=== PATIENT | male | born 1940 | race Caucasian/White ===

== ENCOUNTER → 2016-10-26 | Outpatient (REF) | payer OTHER, MEDICARE ==
[2016-10-26 11:51] LABS: MEAN CORPUSCULAR HEMOGLOBIN 32.1 pg (27.0-33.0); MEAN CORPUSCULAR HGB CONC 35.4 g/dl (32.0-36.5); MEAN CORPUSCULAR VOLUME 90.7 fl (80.0-96.0); RED CELL DISTRIBUTION WIDTH 12.5 % (11.5-14.5); WHITE BLOOD COUNT 6.2 K/mm3 (4.0-10.0)
[2016-10-26 11:57] LABS: ALBUMIN 3.9 GM/DL (3.2-5.2); ALBUMIN/GLOBULIN RATIO 1.22 (1.00-1.93); ALKALINE PHOSPHATASE 60 U/L (45-117); ALT/SGPT 59 U/L (12-78); ANION GAP 8 MEQ/L (8-16); AST/SGOT 26 U/L (15-37); BILIRUBIN,TOTAL 0.9 MG/DL (0.2-1.0); BLOOD UREA NITROGEN 12 MG/DL (7-18); CALCIUM LEVEL 8.6 MG/DL (8.8-10.2); CARBON DIOXIDE LEVEL 32 MEQ/L (21-32); CHLORIDE LEVEL 102 MEQ/L (98-107); CHOLESTEROL LEVEL 123 MG/DL (<200); CREATININE FOR GFR 0.91 MG/DL (0.70-1.30); GLOMERULAR FILTRATION RATE > 60.0 (>42); GLUCOSE, FASTING 106 MG/DL (83-110); POTASSIUM SERUM 3.8 MEQ/L (3.5-5.1); SODIUM LEVEL 142 MEQ/L (136-145); TOTAL PROTEIN 7.1 GM/DL (6.4-8.2); TRIGLYCERIDES LEVEL 118 MG/DL (<150)
== END ==
LOC: M SFHCCLAY 08:45
PROVIDERS: ATTEND Family Medicine
DX: I25.810 Atherosclerosis of coronary artery bypass graft(s) without angina pectoris (principal); E11.9 Type 2 diabetes mellitus without complications

== ENCOUNTER → 2017-08-28 | Outpatient (REF) | payer OTHER, MEDICARE ==
[2017-08-28 11:22] LABS: HEMATOCRIT 42.7 % (42.0-52.0); HEMOGLOBIN 14.8 g/dl (14.0-18.0); MEAN CORPUSCULAR HEMOGLOBIN 30.6 pg (27.0-33.0); MEAN CORPUSCULAR HGB CONC 34.7 g/dl (32.0-36.5); MEAN CORPUSCULAR VOLUME 88.2 fl (80.0-96.0); PLATELET COUNT, AUTOMATED 200 10^3/uL (150-450); RED BLOOD COUNT 4.84 10^6/uL (4.30-6.10); RED CELL DISTRIBUTION WIDTH 12.3 % (11.5-14.5); WHITE BLOOD COUNT 7.8 10^3/uL (4.0-10.0)
[2017-08-28 12:05] LABS: ALBUMIN/GLOBULIN RATIO 1.14 (1.00-1.93); ALKALINE PHOSPHATASE 67 U/L (45-117); ALT/SGPT 41 U/L (12-78); ANION GAP 8 MEQ/L (8-16); AST/SGOT 21 U/L (7-37); BILIRUBIN,TOTAL 1.2 MG/DL (0.2-1.0); BLOOD UREA NITROGEN 14 MG/DL (7-18); CALCIUM LEVEL 8.7 MG/DL (8.8-10.2); CARBON DIOXIDE LEVEL 31 MEQ/L (21-32); CHLORIDE LEVEL 102 MEQ/L (98-107); CHOLESTEROL LEVEL 123 MG/DL (<200); CHOLESTEROL RISK RATIO 3.617 (<5); CREATININE FOR GFR 0.97 MG/DL (0.70-1.30); GLOMERULAR FILTRATION RATE > 60.0 (>42); GLUCOSE, FASTING 146 MG/DL (70-100); HDL CHOLESTEROL 34 MG/DL (>40); LDL CHOLESTEROL 53.2 MG/DL (<100); NON-HDL-C 89 MG/DL; POTASSIUM SERUM 3.6 MEQ/L (3.5-5.1); SODIUM LEVEL 141 MEQ/L (136-145); TOTAL PROTEIN 7.5 GM/DL (6.4-8.2); TRIGLYCERIDES LEVEL 179 MG/DL (<150)
[2017-08-28 12:12] LABS: MALB URINE SIEMENS 19.1 MG/L; MAU/CREAT RATIO 8.8 MCG/MG (0.0-30.0)
[2017-08-28 13:33] LABS: ESTIMATED AVERAGE GLUCOSE 137 MG/DL (60-110); HEMOGLOBIN A1c 6.4 %
== END ==
LOC: M SFHCCLAY 09:34
DX: E11.9 Type 2 diabetes mellitus without complications (principal); I25.810 Atherosclerosis of coronary artery bypass graft(s) without angina pectoris

== ENCOUNTER → 2018-02-19 | Outpatient (CLI) | payer OTHER, MEDICARE ==
[~2018-02-19] MED LIST: BUPIVACAINE HCL 0.5% 10 ML VIAL As Ordered; CONRAY-43 43% 50ML VIAL (Q9960) As Ordered; methylPREDNISolone SUSP 40 MG/ML (DEPO-medrol) VIAL (J1030) As Ordered
== END ==
LOC: M RADPRO 10:03
DX: M25.552 Pain in left hip (principal)
CPT/HCPCS: 20610

== ENCOUNTER 2018-08-20 05:48 | Day surgery (SDC) | payer OTHER, MEDICARE ==
[~2018-08-20] VITALS: Ht 188 cm; Wt 97.5 kg
[~2018-08-20 05:48] MED LIST changes: +ASPI1TAB PO; +ATOR1TAB19 PO; -BUPIVACAINE HCL 0.5% 10 ML VIAL As Ordered; -CONRAY-43 43% 50ML VIAL (Q9960) As Ordered; +ELIQ5TAB PO; +FISH7.5C PO; +FURO40TA2 PO; +GLIM1TAB PO; +KLOR10TA76 PO; +MECL1CHW2 PO; +METF10004 PO; +METF500T13 PO; +METO37.5 PO; +PACE200T PO; +PERC7.5T11 PO; +PRIL20TA2 PO; +SPIR-10 PO; +TRAM1CAP15 PO; +VITA100066 PO; -methylPREDNISolone SUSP 40 MG/ML (DEPO-medrol) VIAL (J1030) As Ordered
[2018-08-20] MEDS ORDERED: LR 1,000 ML IV ONE (07:00)
--- NOTE | 2018-08-20 07:38 | RO ---
DATE OF PROCEDURE: 08/20/2018 PREOPERATIVE DIAGNOSIS: Atrial fibrillation. POSTOPERATIVE DIAGNOSIS: Atrial fibrillation. PROCEDURE: Cardioversion. SURGEON: Dr. Lilian Chew HATCH BOSS: None ANESTHESIA: Matt Roy CRNA BRIEF HISTORY: Mr. Delong is a 78-year-old man who has established coronary artery disease with remote history of coronary artery bypass graft (CABG). He now has persistent atrial fibrillation for several months. He was quite symptomatic with shortness of breath and profound exertional intolerance. He initially was rate controlled, but did not see much improvement in his symptoms and eventually loaded with amiodarone. Because he still did not feel good we decided to pursue DC cardioversion in an attempt to improve quality of his life. He has been chronically anticoagulated with Eliquis. I discussed the nature of the procedure, its indications and potential outcomes, including inability to restore sinus rhythm and potential complications with the patient on an outpatient basis. He did sign appropriate consent. DESCRIPTION OF PROCEDURE: The procedure was performed in the recovery room. Matt Roy CRNA, provided anesthesia. A total of 90 mg of IV propofol were administered. Patient was cardioverted with defibrillator patches applied in anterior position with 200 joules of energy in synchronized mode. Single discharge led to recovery of sinus rhythm. There were no immediate complications. At the time of my dictation, a 12 lead ECG is pending. CONCLUSIONS: Successful cardioversion of atrial fibrillation. The patient will be discharged home on his chronic medications with the exception of reducing the dose of metoprolol to just 25 mg twice a day from his baseline 50 mg twice a day. Amiodarone and Eliquis will be continued. I will see him in followup in one week. FELICIA
[2018-08-20 08:35] VITALS: BP 113/62
--- NOTE | 2018-08-21 00:55 | ECGEPIP ---
Stationary ECG Study [facility] Test Date: 2018-08-20 Pat Name: ROMEL HAHN Department: Room: - Gender: M Student Advisor: EMILY : 1940 Requested By: Lilian Chew Order Number: [id number] Reading MD: Tod Adams Measurements Intervals [place] Rate: 61 P: [place]: 0 QRS: -50 QRSD: 122 T: 6 QT: 469 QTc: 474 Interpretive Statements ATRIAL FIBRILLATION WITH ABERRANT CONDUCTION OR VENTRICULAR PREMATURE COMPLEXES LEFT ANTERIOR FASCICULAR BLOCK PROLONGED QT INTERVAL NO PRIOR TRACING FOR COMPARISON Electronically Signed On 08-21-2018 0:55:00 EDT by Tod Adams
--- NOTE | 2018-08-21 00:59 | ECGEPIP ---
Stationary ECG Study [facility] Test Date: 2018-08-20 Pat Name: ROMEL HAHN Department: Room: - Gender: M Director Payment: EMILY : 1940 Requested By: Lilian Chew Order Number: [id number] Reading MD: Tod Adams Measurements Intervals [place] Rate: 60 P: 25 [place]: 222 QRS: -42 QRSD: 114 T: -9 QT: 470 QTc: 473 Interpretive Statements SINUS RHYTHM WITH FIRST DEGREE AV BLOCK MARKED LEFT AXIS DEVIATION/LEFT ANTERIOR HEMIBLOCK. POSSIBLE PRIOR INFERIOR WALL INFARCT MASKED BY LEFT ANTERIOR HEMIBLOCK PATTERN CONSISTENT WITH PULMONARY DISEASE MODERATE INTRAVENTRICULAR CONDUCTION DELAY/RIGHT BUNDLE-BRANCH BLOCK PATTERN PROLONGED QT INTERVAL PRIOR TRACING ON 08/20/2018 AT 6:39:57 A.M.. ATRIAL FIBRILLATION WAS NOTED Electronically Signed On 08-21-2018 0:59:17 EDT by Tod Adams
== END 2018-08-20 08:45 | disposition home or self-care (01) ==
LOC: M SDC 05:48
PROVIDERS: ATTEND Internal Medicine Cardiovascular Disease
DX: I48.91 Unspecified atrial fibrillation (principal); I25.10 Atherosclerotic heart disease of native coronary artery without angina pectoris; I10 Essential (primary) hypertension; E78.5 Hyperlipidemia, unspecified; E11.9 Type 2 diabetes mellitus without complications; K21.9 Gastro-esophageal reflux disease without esophagitis; Z95.1 Presence of aortocoronary bypass graft; Z79.82 Long term (current) use of aspirin; Z79.01 Long term (current) use of anticoagulants; Z79.84 Long term (current) use of oral hypoglycemic drugs; Z79.899 Other long term (current) drug therapy; Z88.8 Allergy status to other drugs, medicaments and biological substances

== ENCOUNTER → 2018-10-01 | Outpatient (CLI) | payer OTHER, MEDICARE ==
[~2018-10-01] MED LIST changes: -ASPI1TAB PO; +ASPI81TA26 PO; +BUPIVACAINE HCL 0.5% 10 ML VIAL As Ordered ONE; +CONRAY-43 43% 50ML VIAL (Q9960) As Ordered ONE; +MECL1CHW PO; -MECL1CHW2 PO; +methylPREDNISolone SUSP 40 MG/ML (DEPO-medrol) VIAL (J1030) As Ordered ONE
--- NOTE | 2018-10-01 16:38 | REP ---
RIGHT HIP INJECTION The procedure was performed under the direct supervision of Dr. Garibay. The benefits and risks including but not limited to pain infection bleeding and anaphylaxis were explained to the patient and informed consent was obtained. The right femoral neck was localized using fluoroscopic guidance. The skin was prepped and draped in a sterile fashion. 1% lidocaine was used as a local anesthetic. Using fluoroscopic guidance a 22-gauge spinal needle was inserted and advanced to the femoral neck. 0.5 ml of Conray 43 was injected to verify placement. 8 ml of a solution containing 6 ml of 0.5% Marcaine and 2 ml of Depo-Medrol 40 mg injected. The needle was then removed. The patient tolerated the procedure well and there were no immediate complications. Reviewed by NAS Negron 10/01/2018 04:16 P Electronically Signed by Awais Garibay MD 10/01/2018 04:29 P
== END ==
LOC: M RADPRO 09:59
PROVIDERS: ATTEND Orthopaedic Surgery
DX: M16.11 Unilateral primary osteoarthritis, right hip (principal)
CPT/HCPCS: 20610; 77002; J1030; Q9960

== ENCOUNTER → 2018-11-28 | Outpatient (REF) | payer OTHER, MEDICARE ==
[~2018-11-28] MED LIST changes: -BUPIVACAINE HCL 0.5% 10 ML VIAL As Ordered ONE; -CONRAY-43 43% 50ML VIAL (Q9960) As Ordered ONE; -methylPREDNISolone SUSP 40 MG/ML (DEPO-medrol) VIAL (J1030) As Ordered ONE
[2018-11-28 12:18] LABS: HEMOGLOBIN A1c 6.6 %
[2018-11-28 12:27] LABS: ALBUMIN 3.7 GM/DL (3.2-5.2); PERCENT SATURATION 33.6 % (19.7-50.0); THYROID STIMULATING HORMONE 5.79 uIU/ML (0.358-3.740)
== END ==
LOC: M LABDRAWC 11:28 → M LAB REF 11:28
PROVIDERS: ATTEND Family Medicine
DX: Z79.899 Other long term (current) drug therapy (principal)

== ENCOUNTER → 2019-03-02 | Outpatient (REF) | payer OTHER, MEDICARE ==
[~2019-03-02] MED LIST changes: -GLIM1TAB PO; +GLIM1TAB2 PO
== END ==
LOC: M LABDRAWC 16:11
PROVIDERS: ATTEND Internal Medicine Cardiovascular Disease
DX: E03.9 Hypothyroidism, unspecified (principal)

== ENCOUNTER → 2019-03-02 | Outpatient (REF) ==
[~2019-03-02] MED LIST changes: -GLIM1TAB2 PO; +GLIM1TAB4 PO
== END ==
LOC: M LAB LCGH 14:35
PROVIDERS: ATTEND Physician Assistant
DX: C44.42 Squamous cell carcinoma of skin of scalp and neck (principal)

== ENCOUNTER → 2019-05-15 | Outpatient (REF) | payer OTHER, MEDICARE ==
[~2019-05-15] MED LIST changes: +GLIM1TAB2 PO; -GLIM1TAB4 PO
== END ==
LOC: M LAB LCGH 15:24
PROVIDERS: ATTEND Surgery
DX: C44.42 Squamous cell carcinoma of skin of scalp and neck (principal)

== ENCOUNTER → 2019-06-02 | Outpatient (REF) | payer MEDICARE, OTHER ==
[~2019-06-02] MED LIST changes: -GLIM1TAB2 PO; +GLIM1TAB4 PO
[2019-06-02 17:17] LABS: THYROID STIMULATING HORMONE 11.1 uIU/ML (0.358-3.740)
[2019-06-02 17:18] LABS: FREE T4 0.91 NG/DL (0.76-1.46)
== END ==
LOC: M SFHCCLAY 10:39
PROVIDERS: ATTEND Family Medicine
DX: E03.2 Hypothyroidism due to medicaments and other exogenous substances (principal)

== ENCOUNTER → 2019-11-25 | Outpatient (REF) | payer OTHER, MEDICARE ==
[2019-11-26 11:50] LABS: FREE T4 1.27 NG/DL (0.76-1.46); THYROID STIMULATING HORMONE 4.06 uIU/ML (0.358-3.740)
== END ==
LOC: M SFHCCLAY 15:09
PROVIDERS: ATTEND Family Medicine
DX: E11.9 Type 2 diabetes mellitus without complications (principal)

== ENCOUNTER → 2020-03-16 | Outpatient (REF) | payer OTHER, MEDICARE | LOC: M SFHCPLAZ 16:51 | PROVIDERS: ATTEND Physician Assistant | DX: C44.41 Basal cell carcinoma of skin of scalp and neck (principal) ==

== ENCOUNTER → 2020-03-23 | Outpatient (REF) | payer OTHER, MEDICARE ==
[2020-03-24 12:36] LABS: CALCIUM LEVEL 9.6 MG/DL (8.8-10.2); CREATININE FOR GFR 1.36 MG/DL (0.70-1.30); FREE T4 1.29 NG/DL (0.76-1.46); POTASSIUM SERUM 5.1 MEQ/L (3.5-5.1); THYROID STIMULATING HORMONE 1.82 uIU/ML (0.358-3.740)
[2020-03-24 12:56] LABS: HEMOGLOBIN A1c 6.4 %
== END ==
LOC: M SFHCCLAY 15:43
PROVIDERS: ATTEND Family Medicine
DX: Z23 Encounter for immunization (principal); E11.9 Type 2 diabetes mellitus without complications; I25.810 Atherosclerosis of coronary artery bypass graft(s) without angina pectoris; E03.9 Hypothyroidism, unspecified

== ENCOUNTER → 2020-06-27 | Outpatient (REF) | payer OTHER, MEDICARE | LOC: M LAB REF 18:29 | PROVIDERS: ATTEND Dermatology | DX: L57.0 Actinic keratosis (principal) ==

== ENCOUNTER 2020-07-08 14:02 | Outpatient (CLI) | payer OTHER, MEDICARE ==
[~2020-07-08] VITALS: Ht 180.3 cm; Wt 95.2 kg
[~2020-07-08 14:02] MED LIST changes: +ALBUTEROL 90 MCG/ACT 8GM HFA INHALER INH PRN; +ALBUTEROL SULFATE 2.5 MG/0.5 ML INH NEB SOLN INH PRN; +EPINEPHrine INJ 1 MG/ML 1ML AMP IM PRN; +NS 1,000 ML IV SCH; +diphenhydrAMINE 50MG/ML VIAL (J1200) IV PRN; +methylPREDNISolone 125MG 2ML VIAL IV PRN
[2020-07-08] MEDS ORDERED: diphenhydrAMINE 50MG/ML VIAL (J1200) As Ordered ONE (14:07)
[2020-07-08 14:30] VITALS: BP 159/93
[2020-07-08] MEDS ORDERED: diphenhydrAMINE 50MG/ML VIAL (J1200) IV ONE (14:30)
[2020-07-08] MEDS ORDERED: BAMLANIVIMAB 700 MG in NS 250 ML IV ONE (15:00)
[2020-07-08 15:23] VITALS: BP 166/80
[2020-07-08 15:54] VITALS: BP 158/79
[2020-07-08 16:29] VITALS: BP 155/76
[2020-07-08 16:57] VITALS: BP 151/84
[2020-07-08 17:35] VITALS: BP 149/72
== END 2020-07-08 15:45 | disposition home or self-care (01) ==
LOC: M OPCLI4PR 14:02
PROVIDERS: ATTEND Family Medicine
DX: U07.1 COVID-19 (principal); Z88.8 Allergy status to other drugs, medicaments and biological substances
CPT/HCPCS: 96375; J1200; M0239

== ENCOUNTER → 2021-06-08 | Outpatient (REF) | payer OTHER, MEDICARE, BC ==
[~2021-06-08] MED LIST changes: -ALBUTEROL 90 MCG/ACT 8GM HFA INHALER INH PRN; -ALBUTEROL SULFATE 2.5 MG/0.5 ML INH NEB SOLN INH PRN; -EPINEPHrine INJ 1 MG/ML 1ML AMP IM PRN; -KLOR10TA76 PO; -NS 1,000 ML IV SCH; +POTA-136 PO; -diphenhydrAMINE 50MG/ML VIAL (J1200) IV PRN; -methylPREDNISolone 125MG 2ML VIAL IV PRN
== END ==
LOC: M LAB REF 09:12
PROVIDERS: ATTEND Nurse Practitioner Family
DX: C44.222 Squamous cell carcinoma of skin of right ear and external auricular canal (principal)

== ENCOUNTER → 2021-07-07 | Outpatient (REF) | payer MEDICARE, OTHER ==
[2021-07-07 15:51] LABS: HEMATOCRIT 44.6 % (42.0-52.0); MEAN CORPUSCULAR HEMOGLOBIN 30.7 pg (27.0-33.0); MEAN CORPUSCULAR HGB CONC 33.6 g/dl (32.0-36.5); MEAN CORPUSCULAR VOLUME 91.2 fl (80.0-96.0); PLATELET COUNT, AUTOMATED 163 10^3/uL (150-450); RED BLOOD COUNT 4.89 10^6/uL (4.30-6.10); WHITE BLOOD COUNT 6.6 10^3/uL (4.0-10.0)
[2021-07-07 16:26] LABS: ALBUMIN 3.9 GM/DL (3.2-5.2); ALT/SGPT 32 U/L (12-78); BILIRUBIN,TOTAL 0.9 MG/DL (0.2-1.0); BLOOD UREA NITROGEN 24 MG/DL (7-18); CARBON DIOXIDE LEVEL 31 MEQ/L (21-32); CHLORIDE LEVEL 103 MEQ/L (98-107); CHOLESTEROL LEVEL 147 MG/DL (<200); FREE T4 1.41 NG/DL (0.76-1.46); GLOMERULAR FILTRATION RATE > 60.0 (>35); GLUCOSE, FASTING 159 MG/DL (70-100); HDL CHOLESTEROL 35 MG/DL (>40); LDL CHOLESTEROL 87 MG/DL (<100); NON-HDL-C 112 MG/DL; POTASSIUM SERUM 4.7 MEQ/L (3.5-5.1); SODIUM LEVEL 138 MEQ/L (136-145); THYROID STIMULATING HORMONE 0.839 uIU/ML (0.358-3.740); TOTAL PROTEIN 7.4 GM/DL (6.4-8.2); TRIGLYCERIDES LEVEL 125 MG/DL (<150)
[2021-07-07 17:17] LABS: HEMOGLOBIN A1c 8.2 %
== END ==
LOC: M SFHCCLAY 10:43
PROVIDERS: ATTEND Family Medicine
DX: I25.810 Atherosclerosis of coronary artery bypass graft(s) without angina pectoris (principal); E11.9 Type 2 diabetes mellitus without complications; I48.0 Paroxysmal atrial fibrillation; E03.9 Hypothyroidism, unspecified

== ENCOUNTER → 2021-11-08 | Outpatient (REF) | payer OTHER, MEDICARE ==
[2021-11-08 16:38] LABS: HEMOGLOBIN A1c 8.3 %
== END ==
LOC: M SFHCCLAY 13:39
PROVIDERS: ATTEND Family Medicine
DX: E11.9 Type 2 diabetes mellitus without complications (principal)

== ENCOUNTER → 2021-12-12 | Outpatient (REF) | payer OTHER, MEDICARE ==
[2021-12-12 15:48] LABS: BASO # 0.1 10^3/uL (0.0-0.2); BASO % 0.8 % (0.0-1.0); EOS # 0.2 10^3/uL (0.0-0.5); EOS % 2.5 % (0.0-3.0); HEMATOCRIT 47.5 % (42.0-52.0); HEMOGLOBIN 15.6 g/dl (13.5-17.5); LYMPH # 1.9 10^3/uL (1.5-5.0); LYMPH % 25.5 % (24.0-44.0); MEAN CORPUSCULAR HEMOGLOBIN 30.6 pg (27.0-33.0); MEAN CORPUSCULAR HGB CONC 32.8 g/dl (32.0-36.5); MEAN CORPUSCULAR VOLUME 93.1 fl (80.0-96.0); MONO # 0.6 10^3/uL (0.0-0.8); NEUTROPHILS # 4.8 10^3/uL (1.5-8.5); NEUTROPHILS % 63.1 % (36.0-66.0); PLATELET COUNT, AUTOMATED 186 10^3/uL (150-450); WHITE BLOOD COUNT 7.5 10^3/uL (4.0-10.0)
[2021-12-12 18:39] LABS: CALCIUM LEVEL 9.1 MG/DL (8.8-10.2); CREATININE FOR GFR 1.81 MG/DL (0.70-1.30); GLOMERULAR FILTRATION RATE 38.6 (>35); POTASSIUM SERUM 4.3 MEQ/L (3.5-5.1); THYROID STIMULATING HORMONE 0.544 uIU/ML (0.358-3.740)
== END ==
LOC: M SFHCCLAY 11:19
PROVIDERS: ATTEND Family Medicine
DX: E11.9 Type 2 diabetes mellitus without complications (principal); M15.9 Polyosteoarthritis, unspecified; E03.9 Hypothyroidism, unspecified

== ENCOUNTER → 2022-01-03 | Outpatient (REF) | payer OTHER, MEDICARE ==
[~2022-01-03] MED LIST changes: +FISH10005 PO; -FISH7.5C PO
[2022-01-03 19:24] LABS: CALCIUM LEVEL 9.1 MG/DL (8.8-10.2); CREATININE FOR GFR 1.32 MG/DL (0.70-1.30); GLOMERULAR FILTRATION RATE 55.6 (>35); POTASSIUM SERUM 3.7 MEQ/L (3.5-5.1)
== END ==
LOC: M SFHCCLAY 10:06
PROVIDERS: ATTEND Family Medicine
DX: E11.9 Type 2 diabetes mellitus without complications (principal)

== ENCOUNTER → 2022-03-29 | Outpatient (REF) | payer BC, MEDICARE ==
[2022-03-29 13:11] LABS: CHOLESTEROL RISK RATIO 3.288 (<5)
== END ==
LOC: M LABDRAWC 11:19
PROVIDERS: ATTEND Physician Assistant
DX: E78.5 Hyperlipidemia, unspecified (principal)

== ENCOUNTER → 2022-04-13 | Outpatient (REF) | payer OTHER, MEDICARE ==
[2022-04-13 12:05] LABS: HEMATOCRIT 49.6 % (42.0-52.0); HEMOGLOBIN 15.9 g/dl (13.5-17.5); MEAN CORPUSCULAR HEMOGLOBIN 30.2 pg (27.0-33.0); MEAN CORPUSCULAR HGB CONC 32.1 g/dl (32.0-36.5); MEAN CORPUSCULAR VOLUME 94.1 fl (80.0-96.0); PLATELET COUNT, AUTOMATED 193 10^3/uL (150-450); RED BLOOD COUNT 5.27 10^6/uL (4.30-6.10); WHITE BLOOD COUNT 6.2 10^3/uL (4.0-10.0)
[2022-04-13 12:41] LABS: HEMOGLOBIN A1c 6.7 %
[2022-04-13 13:09] LABS: ALBUMIN 3.9 GM/DL (3.2-5.2); BILIRUBIN,TOTAL 0.6 MG/DL (0.2-1.0); CALCIUM LEVEL 9.2 MG/DL (8.8-10.2); CREATININE FOR GFR 1.35 MG/DL (0.70-1.30); FREE T4 1.11 NG/DL (0.76-1.46); GLOMERULAR FILTRATION RATE 54.1 (>35); POTASSIUM SERUM 4.2 MEQ/L (3.5-5.1); THYROID STIMULATING HORMONE 0.733 uIU/ML (0.358-3.740); TOTAL PROTEIN 7.5 GM/DL (6.4-8.2)
== END ==
LOC: M SFHCCLAY 09:04
PROVIDERS: ATTEND Family Medicine
DX: E11.9 Type 2 diabetes mellitus without complications (principal); I25.810 Atherosclerosis of coronary artery bypass graft(s) without angina pectoris; E03.9 Hypothyroidism, unspecified

== ENCOUNTER → 2022-07-18 | Outpatient (REF) | payer OTHER ==
[2022-07-18 11:52] LABS: HEMATOCRIT 47.6 % (42.0-52.0); HEMOGLOBIN 15.3 g/dl (13.5-17.5); MEAN CORPUSCULAR HEMOGLOBIN 29.9 pg (27.0-33.0); MEAN CORPUSCULAR HGB CONC 32.1 g/dl (32.0-36.5); MEAN CORPUSCULAR VOLUME 93.2 fl (80.0-96.0); PLATELET COUNT, AUTOMATED 170 10^3/uL (150-450); RED BLOOD COUNT 5.11 10^6/uL (4.30-6.10); WHITE BLOOD COUNT 6.6 10^3/uL (4.0-10.0)
[2022-07-18 12:13] LABS: MAU/CREAT RATIO 15.3 MCG/MG (0.0-30.0)
[2022-07-18 12:28] LABS: HEMOGLOBIN A1c 6.3 % (4.0-6.0)
[2022-07-18 14:30] LABS: ALBUMIN 3.8 G/DL (3.2-5.2); ALKALINE PHOSPHATASE 77 U/L (46-116); ALT/SGPT 17 U/L (7.0-40); AST/SGOT 18 U/L (<34); BILIRUBIN,TOTAL 0.6 MG/DL (0.3-1.2); BLOOD UREA NITROGEN 21 MG/DL (9-23); CALCIUM LEVEL 8.9 MG/DL (8.3-10.6); CARBON DIOXIDE LEVEL 30 MMOL/L (20-31); CHLORIDE LEVEL 105 MMOL/L (98-107); CHOLESTEROL LEVEL 142 MG/DL (<200); CHOLESTEROL RISK RATIO 3.55 (<5); CREATININE FOR GFR 1.17 MG/DL (0.70-1.30); GLOMERULAR FILTRATION RATE > 60.0 (>35); GLUCOSE, FASTING 117 MG/DL (74-106); NON-HDL-C 102 MG/DL; POTASSIUM SERUM 4.2 MMOL/L (3.5-5.1); SODIUM LEVEL 141 MMOL/L (136-145)
[2022-07-18 22:10] LABS: LDL CHOLESTEROL 84.6 MG/DL (<100); TOTAL PROTEIN 6.9 G/DL (5.7-8.2); TRIGLYCERIDES LEVEL 87 MG/DL (<150)
== END ==
LOC: M SFHCCLAY 07:58
PROVIDERS: ATTEND Family Medicine
DX: I25.810 Atherosclerosis of coronary artery bypass graft(s) without angina pectoris (principal); M15.9 Polyosteoarthritis, unspecified; E11.9 Type 2 diabetes mellitus without complications; I48.0 Paroxysmal atrial fibrillation; E03.9 Hypothyroidism, unspecified

== ENCOUNTER → 2023-01-31 | Outpatient (CLI) | payer OTHER | LOC: M CLY 08:16 | PROVIDERS: ATTEND Family Medicine | DX: I48.0 Paroxysmal atrial fibrillation (principal) ==

== ENCOUNTER → 2023-01-31 | Outpatient (REF) | payer OTHER ==
[2023-01-31 11:50] LABS: HEMATOCRIT 41.9 % (42.0-52.0); MEAN CORPUSCULAR HEMOGLOBIN 30.3 pg (27.0-33.0); MEAN CORPUSCULAR HGB CONC 33.4 g/dl (32.0-36.5); MEAN CORPUSCULAR VOLUME 90.7 fl (80.0-96.0); PLATELET COUNT, AUTOMATED 160 10^3/uL (150-450); RED BLOOD COUNT 4.62 10^6/uL (4.30-6.10); WHITE BLOOD COUNT 7.1 10^3/uL (4.0-10.0)
[2023-01-31 12:04] LABS: BLOOD UREA NITROGEN 23 MG/DL (9-23); CARBON DIOXIDE LEVEL 29 MMOL/L (20-31); CHLORIDE LEVEL 104 MMOL/L (98-107); CREATININE FOR GFR 1.09 MG/DL (0.70-1.30); GLOMERULAR FILTRATION RATE > 60.0 (>35); GLUCOSE, FASTING 119 MG/DL (74-106); POTASSIUM SERUM 4.1 MMOL/L (3.5-5.1); SODIUM LEVEL 141 MMOL/L (136-145)
[2023-01-31 13:13] LABS: HEMOGLOBIN A1c 6.6 % (4.0-6.0)
== END ==
LOC: M SFHCCLAY 07:33
PROVIDERS: ATTEND Family Medicine
DX: I25.810 Atherosclerosis of coronary artery bypass graft(s) without angina pectoris (principal); M15.9 Polyosteoarthritis, unspecified; E11.9 Type 2 diabetes mellitus without complications

== ENCOUNTER → 2023-04-30 | Outpatient (REF) | payer OTHER ==
[2023-04-30 12:31] LABS: ALBUMIN 4.1 G/DL (3.2-5.2); ALKALINE PHOSPHATASE 73 U/L (46-116); ALT/SGPT 42 U/L (7.0-40); AST/SGOT 28 U/L (<34); BLOOD UREA NITROGEN 23 MG/DL (9-23); CARBON DIOXIDE LEVEL 31 MMOL/L (20-31); CHLORIDE LEVEL 103 MMOL/L (98-107); CHOLESTEROL LEVEL 134 MG/DL (<200); CHOLESTEROL RISK RATIO 3.51 (<5); CREATININE FOR GFR 1.08 MG/DL (0.70-1.30); GLOMERULAR FILTRATION RATE > 60.0 (>35); GLUCOSE, FASTING 140 MG/DL (74-106); HDL CHOLESTEROL 38.1 MG/DL (>40); LDL CHOLESTEROL 65.1 MG/DL (<100); NON-HDL-C 95.9 MG/DL; POTASSIUM SERUM 4.2 MMOL/L (3.5-5.1); SODIUM LEVEL 143 MMOL/L (136-145); TOTAL PROTEIN 7.4 G/DL (5.7-8.2); TRIGLYCERIDES LEVEL 154 MG/DL (<150)
[2023-04-30 12:47] LABS: HEMOGLOBIN A1c 6.4 % (4.0-6.0)
== END ==
LOC: M SFHCCLAY 08:33
PROVIDERS: ATTEND Family Medicine
DX: I25.810 Atherosclerosis of coronary artery bypass graft(s) without angina pectoris (principal); G89.21 Chronic pain due to trauma; E11.9 Type 2 diabetes mellitus without complications

== ENCOUNTER → 2023-09-23 | Outpatient (CLI) | payer BC, OTHER ==
[~2023-09-23] MED LIST changes: -GLIM1TAB4 PO; +GLIM1TAB84 PO
[2023-09-23 16:08] LABS: HEMATOCRIT 45.9 % (42.0-52.0); HEMOGLOBIN 15.6 g/dl (13.5-17.5); MEAN CORPUSCULAR HEMOGLOBIN 31.8 pg (27.0-33.0); MEAN CORPUSCULAR VOLUME 93.7 fl (80.0-96.0); PLATELET COUNT, AUTOMATED 195 10^3/uL (150-450); WHITE BLOOD COUNT 9.8 10^3/uL (4.0-10.0)
[2023-09-23 16:41] LABS: ALBUMIN 4.3 G/DL (3.2-5.2); ALKALINE PHOSPHATASE 77 U/L (46-116); ALT/SGPT 38 U/L (7.0-40); AST/SGOT 37 U/L (<34); BILIRUBIN,TOTAL 0.9 MG/DL (0.3-1.2); BLOOD UREA NITROGEN 22 MG/DL (9-23); CALCIUM LEVEL 9.7 MG/DL (8.3-10.6); CARBON DIOXIDE LEVEL 30 MMOL/L (20-31); CHLORIDE LEVEL 101 MMOL/L (98-107); CREATININE FOR GFR 1.19 MG/DL (0.70-1.30); GLOMERULAR FILTRATION RATE > 60.0 (>35); GLUCOSE, FASTING 117 MG/DL (74-106); SODIUM LEVEL 139 MMOL/L (136-145); TOTAL PROTEIN 7.6 G/DL (5.7-8.2)
== END ==
LOC: M LAB 15:46
PROVIDERS: ATTEND Internal Medicine Cardiovascular Disease
DX: I50.22 Chronic systolic (congestive) heart failure (principal); Z95.5 Presence of coronary angioplasty implant and graft

== ENCOUNTER → 2023-11-14 | Outpatient (REF) | payer BC, OTHER | LOC: M LAB REF 15:57 | PROVIDERS: ATTEND Surgery | DX: D17.0 Benign lipomatous neoplasm of skin and subcutaneous tissue of head, face and neck (principal) ==

== ENCOUNTER → 2023-11-28 | Outpatient (REF) | payer BC, OTHER ==
[2023-11-28 12:34] LABS: HEMOGLOBIN A1c 6.8 % (4.0-6.0)
== END ==
LOC: M SFHCCLAY 08:32
PROVIDERS: ATTEND Family Medicine
DX: E11.9 Type 2 diabetes mellitus without complications (principal)

== ENCOUNTER → 2024-03-31 | Outpatient (REF) | payer BC, OTHER ==
[2024-04-01 12:36] LABS: RSV AMPLIFICATION NEGATIVE (NEGATIVE)
== END ==
LOC: M SFHCCLAY 11:34
PROVIDERS: ATTEND Family Medicine
DX: J06.9 Acute upper respiratory infection, unspecified (principal)

== ENCOUNTER → 2024-05-22 | Outpatient (REF) | payer BC, OTHER ==
[~2024-05-22] MED LIST changes: +HYDR-3363 PO; +MAGN400C2 PO; +METO100T5 PO; +OMEP40CA5 PO; +OXYC10TA3 PO; +POTA-150 PO; +ROSU10TA61 PO; +SYNT50TA PO; +TRAM100T21 PO; +VITA100017 PO
[2024-05-22 17:09] LABS: ALBUMIN 3.9 G/DL (3.2-5.2); ALKALINE PHOSPHATASE 73 U/L (40-129); ALT/SGPT 42 U/L (7.0-40); AST/SGOT 21 U/L (<34); BILIRUBIN,TOTAL 0.8 MG/DL (0.3-1.2); BLOOD UREA NITROGEN 20 MG/DL (9-23); CALCIUM LEVEL 9.5 MG/DL (8.3-10.6); CARBON DIOXIDE LEVEL 31 MMOL/L (20-31); CHLORIDE LEVEL 101 MMOL/L (98-107); CHOLESTEROL LEVEL 144 MG/DL (<200); CHOLESTEROL RISK RATIO 3.52 (<5); CREATININE FOR GFR 0.92 MG/DL (0.70-1.30); GLOMERULAR FILTRATION RATE > 60.0 (>35); GLUCOSE, FASTING 226 MG/DL (74-106); HDL CHOLESTEROL 40.9 MG/DL (>40); LDL CHOLESTEROL 63.5 MG/DL (<100); NON-HDL-C 103.1 MG/DL; POTASSIUM SERUM 4.4 MMOL/L (3.5-5.1); SODIUM LEVEL 138 MMOL/L (136-145); TOTAL PROTEIN 7.3 G/DL (5.7-8.2); TRIGLYCERIDES LEVEL 198 MG/DL (<150)
[2024-05-22 17:11] LABS: FREE T4 1.26 NG/DL (0.89-1.76); THYROID STIMULATING HORMONE 0.746 uIU/ML (0.55-4.78)
[2024-05-22 17:35] LABS: HEMOGLOBIN A1c 8.2 % (4.0-6.0)
== END ==
LOC: M SFHCCLAY 11:05
PROVIDERS: ATTEND Physician Assistant
DX: E03.9 Hypothyroidism, unspecified (principal); M48.10 Ankylosing hyperostosis [Forestier], site unspecified; E11.9 Type 2 diabetes mellitus without complications; E78.2 Mixed hyperlipidemia; I11.0 Hypertensive heart disease with heart failure; I48.0 Paroxysmal atrial fibrillation; I50.32 Chronic diastolic (congestive) heart failure; I25.810 Atherosclerosis of coronary artery bypass graft(s) without angina pectoris; G89.21 Chronic pain due to trauma; M15.9 Polyosteoarthritis, unspecified

== ENCOUNTER 2024-06-01 07:05 | Day surgery (SDC) | payer BC, OTHER ==
[~2024-06-01] VITALS: Ht 238.8 cm; Wt 88.3 kg
[~2024-06-01 07:05] MED LIST changes: +LR 1,000 ML IV SCH; +MIDAZOLAM INJ 2MG/2ML VIAL As Ordered ONE; +fentaNYL 100 MCG/2 ML INJECTION As Ordered ONE
[2024-06-01] MEDS: FLURBIPROFEN 0.03% OPHTH SOLN 2.5 ML OS SCH (07:33)
[2024-06-01] MEDS: PHENYLEPHRINE 2.5% OPHTH SOL 2ML OS SCH (07:33)
[2024-06-01] MEDS: CYCLOPENTOLATE 1% OPHTH SOLN 2ML BTL OS SCH (07:33)
[2024-06-01] MEDS: TETRACAINE 0.5% OPHTH SOLN 4ML OS SCH (07:34)
[2024-06-01] MEDS: LIDOCAINE 1% SDV 5ML VIAL As Ordered ONE (08:56)
[2024-06-01] MEDS: CEFUROXIME 1MG/0.1ML INTRACAMERAL INJ As Ordered ONE (09:12)
[2024-06-01 09:23] VITALS: BP 142/68; TEMP 97; O2SAT 96
== END 2024-06-01 09:36 | disposition home or self-care (01) ==
LOC: M SDC 07:05
PROVIDERS: ATTEND Ophthalmology
DX: H25.89 Other age-related cataract (principal); I48.91 Unspecified atrial fibrillation; I25.10 Atherosclerotic heart disease of native coronary artery without angina pectoris; I10 Essential (primary) hypertension; E11.9 Type 2 diabetes mellitus without complications; Z88.8 Allergy status to other drugs, medicaments and biological substances; Z79.899 Other long term (current) drug therapy
CPT/HCPCS: 66984; J0697; J3010; V2788

== ENCOUNTER → 2024-09-25 | Outpatient (REF) | payer BC, OTHER ==
[~2024-09-25] MED LIST changes: -LR 1,000 ML IV SCH; -MIDAZOLAM INJ 2MG/2ML VIAL As Ordered ONE; -fentaNYL 100 MCG/2 ML INJECTION As Ordered ONE
== END ==
LOC: M SFHCDERM 12:45
PROVIDERS: ATTEND Nurse Practitioner Family
DX: C44.629 Squamous cell carcinoma of skin of left upper limb, including shoulder (principal)

== ENCOUNTER → 2025-02-26 | Outpatient (CLI) | payer BC, MEDICARE | LOC: M CLY 13:34 | PROVIDERS: ATTEND Physician Assistant | DX: M25.561 Pain in right knee (principal) ==